=== PATIENT | male | born 1990 | race African-American/Black ===

== ENCOUNTER 2017-06-02 19:52 | Emergency (ER) | payer MEDICAID ==
[~2017-06-02] VITALS: Ht 182.9 cm; Wt 111.1 kg
[2017-06-02 22:30] VITALS: BP 128/76
[2017-06-02] MEDS ORDERED: cefTRIAXone 1GM/10ml IVPUSH 10 ML IV ONE (23:15)
[2017-06-02] MEDS ORDERED: PIPERACILLIN-TAZO 4.5GM 50 ML IV ONE (23:15)
[2017-06-02] MEDS ORDERED: ONDANSETRON HCL 4 MG/2 ML VIAL IV ONE (23:15)
[2017-06-02] MEDS ORDERED: MORPHINE SULFATE 4 MG/ML SYR/VIAL IV ONE (23:15)
[2017-06-02] MEDS ORDERED: SODIUM CHLORIDE 0.9% 1,000 ML IV ONE (23:15)
[2017-06-02] MEDS ORDERED: ceFAZolin 1GM/50ML 50 ML IV ONE (23:15)
== END 2017-06-03 03:51 | disposition home or self-care (01) ==
LOC: ER 19:52
DX: L03.115 Cellulitis of right lower limb (principal); F17.210 Nicotine dependence, cigarettes, uncomplicated
CPT/HCPCS: 96365; 96367; 96375; 99284; J0690; J2270; J2405; J2543; J7030